=== PATIENT | female | born 1990 | race Caucasian/White ===

== ENCOUNTER 2019-06-19 16:53 | Emergency (ER) | payer MEDICAID ==
[~2019-06-19] VITALS: Ht 152.4 cm; Wt 97.1 kg
[2019-06-19 16:59] VITALS: Ht 152.4 cm; Wt 97.1 kg
[2019-06-19 18:41] VITALS: BP 130/94
== END 2019-06-19 18:41 | disposition home or self-care (01) ==
LOC: ED 16:53
DX: S86.912A Strain of unspecified muscle(s) and tendon(s) at lower leg level, left leg, initial encounter (principal); W18.39XA Other fall on same level, initial encounter; Y93.I9 Activity, other involving external motion; Y92.89 Other specified places as the place of occurrence of the external cause; Y99.8 Other external cause status

== ENCOUNTER 2019-07-09 15:30 | Emergency (ER) | payer MEDICAID ==
[~2019-07-09] VITALS: Ht 152.4 cm; Wt 95.3 kg
[2019-07-09 15:33] VITALS: Ht 152.4 cm; Wt 95.3 kg
[2019-07-09 17:07] VITALS: BP 131/71
== END 2019-07-09 17:07 | disposition home or self-care (01) ==
LOC: ED 15:30
DX: J06.9 Acute upper respiratory infection, unspecified (principal)